=== PATIENT | female | born 2000 | race American Indian/Alaskan Native ===

== ENCOUNTER 2018-08-10 16:42 | Emergency (ER) | payer SELFPAY ==
[2018-08-10 16:50] VITALS: BP 147/78
[2018-08-10 17:25] LABS: Bilirubin,Urine NEG (Negative); Blood,Urine NEG (Negative); Color,Urine Straw (Yellow); Protein,Urine <15 mg/dL mg/dL (Negative); Urobilinogen,Urine < 2.0 mg/dL (<2.0)
[2018-08-10 17:27] LABS: HCG Qualitative,Urine Negative (Negative)
--- NOTE | 2018-08-10 18:18 | Emergency Department Report ---
ED Female HPI - General Chief complaint: Urogenital-Female Stated complaint: PELVIC ISSUES Time Seen by Provider: 08/10/18 17:19 Source: patient Mode of arrival: Ambulatory Limitations: No Limitations - History of Present Illness Initial comments: 18-year-old 18 year old -[place] female comes in complaining of pelvic discomfort and pressure for about 6 months. Patient denies any vaginal bleeding vaginal discharge or painful urination. Patient reports that pressure causes the pain. Patient reports normal periods last 7 days last menstrual was 08/02/2018. Patient reports that the pelvic pain is getting worse. She also complains of constipation and reports her last bowel movement was 3 days ago. Patient reports she has tried laxative but will come back. She reports that the pain is intermittent discomfort lasting hours and goes away. There's nothing makes it worse and nothing makes it better. Patient has tried no over-the-co unter pain medication. 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 Holland has not seen him since she has no insurance. She is 1. A 0. She reports she is not sexually active and is currently on no control. -: month(s) (6) Location: other (pelvic pressure) Radiation: non-radiating Severity: moderate Severity scale (0 -10): 6 Consistency: intermittent Worsens with: none Are you Now?: No Last Menstrual Period: 08/02/18 EDC: 05/09/19 - Related Data Sexually active: No : 1 Para: 0 A: 1 Home Medications Medication Instructions Recorded Confirmed Last Taken No Known Home Medications [No 07/26/14 07/26/14 Unknown Reported Home Medications] Allergies Allergy/AdvReac Type Severity Reaction Status Date / Time No Known Allergies Allergy Unverified 07/26/14 11:00 ED Review of Systems ROS: Stated complaint: PELVIC ISSUES Other details as noted in HPI Comment: All other systems reviewed and negative Gastrointestinal: other (pelvic pressure) ED Past Medical Hx - Past Medical History Previous Medical History?: No - Surgical History Past Surgical History?: No - Social History Smoking Status: Never Smoker Substance Use Type: None - Medications Home Medications: Home Medications Medication Instructions Recorded Confirmed Last Taken Type No Known Home Medications [No 07/26/14 07/26/14 Unknown History Reported Home Medications] ED Physical Exam - General Limitations: No Limitations ED Course Vital Signs 08/10/18 16:46 Temperature 98.5 F Pulse Rate 72 Respiratory 16 Rate Blood Pressure 147/78 O2 Sat by Pulse 100 Oximetry ED Medical Decision Making - Radiology Data Radiology results: report reviewed FINAL REPORT EXAM: XR ABDOMEN 1V AP HISTORY: constipation TECHNIQUE: Supine AP view of the abdomen. PRIORS: None. FINDINGS: The bowel gas pattern appears normal. The bones are unremarkable. IMPRESSION: Normal bowel gas pattern. Transcribed By: [facility] [place] Dictated By: ROSARIO JOHNSON MD Electronically Authenticated By: ROSARIO JOHNSON MD Signed Date/Time: 08/10/181921 DD/ 23 TD/TT: 08/10/181923 FINAL REPORT PROCEDURE: US TRANSVAGINAL TECHNIQUE: Real-time transvaginal sonography in multiple planes of the pelvis was performed with image documentation. This examination was performed without Doppler. Vascular abnormalities, including ovarian torsion, will not be detectable without Doppler evaluation. CPT 44714 HISTORY: pelvic pressure COMPARISON: No prior studies are available for comparison. FINDINGS: UTERUS Size: 7.2 x 3.6 x 5.1 cm. Endometrial thickness: 4.4 mm. Orientation: Anteverted and retroflexed. Cervix: Normal. Fibroids/masses: None. RIGHT Ovary: 3.7 x 2.0 x 2.7 cm. Appearance: Normal follicular changes are noted. Doppler flow is visualized.. LEFT Ovary: 2.3 x 2.3 x 1.9 cm. Appearance: Normal follicular changes are noted. Doppler flow is visualized.. Pelvic fluid: None. Other: None. IMPRESSION: Unremarkable study. Transcribed By: [facility] [place] Dictated By: WILMER BRADY Electronically Authenticated By: WILMER BRADY Signed Date/Time: 08/10/182023 DD/ 25 TD/TT: 08/10/182025 FINAL REPORT PROCEDURE: US PELVIC COMPLETE TECHNIQUE: Real-time transabdominal sonography in multiple planes of pelvis was performed with image documentation. This examination was performed without Doppler. Vascular abnormalities, including ovarian torsion, will not be detectable without Doppler evaluation. CPT 36338 HISTORY: with pressure COMPARISON: No prior studies are available for comparison. FINDINGS: Limited study due to empty urinary bladder UTERUS Size: 7.2 x 3.6 x 5.1 cm. Endometrial thickness: 4.4 mm. Orientation: Anteverted and retroflexed. Cervix: Normal. Fibroids/masses: None. RIGHT Ovary: 3.7 x 2.0 x 2.7 cm. Appearance: Normal follicular changes are noted. Doppler flow is visualized.. LEFT Ovary: 2.3 x 2.3 x 1.9 cm. Appearance: Normal follicular changes are noted. Doppler flow is visualized.. Pelvic fluid: None. Other: None. IMPRESSION: Limited study due to empty urinary bladder Unremarkable study otherwise. Transcribed By: [facility] [place] Dictated By: WILMER BRADY Electronically Authenticated By: WILMER BRADY Signed Date/Time: 08/10/182022 DD/ 24 TD/TT: 08/10/182024 - Medical Decision Making Patient has been evaluated by this provider in fast track. KUB shows normal examination, ultrasound pelvic complete with transvaginal normal examination. 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 Take [id number] Tylenol or M otrin for pain management. Critical care attestation.: If time is entered above; I have spent that time in minutes in the direct care of this critically ill patient, excluding procedure time. ED Disposition Clinical Impression: Pelvic pressure in female Disposition: DC-01 TO HOME OR SELFCARE Is pt being admited?: No Does the pt Need Aspirin: No Condition: Stable Additional Instructions: Please take Tylenol or Motrin for pain management. Your ultrasound and x-ray of your abdomen were both normal termination. Follow-up with HORSE RACING ANALYST I have listed several below for your convenience. Referrals: ROBE DE LA CRUZ MD [Primary Care Provider] - 3-5 Days [facility] [Provider Group] - 3-5 Days [facility] - 3-5 Days [facility] [Provider Group] - 3-5 Days Forms: Work/School Release Form(ED), Accompanied Note
--- NOTE | 2018-08-10 19:22 | XRay Report ---
FINAL REPORT EXAM: XR ABDOMEN 1V AP HISTORY: constipation TECHNIQUE: Supine AP view of the abdomen. PRIORS: None. FINDINGS: The bowel gas pattern appears normal. The bones are unremarkable. IMPRESSION: Normal bowel gas pattern.
--- NOTE | 2018-08-10 20:23 | Ultrasound Report ---
FINAL REPORT PROCEDURE: US PELVIC COMPLETE TECHNIQUE: Real-time transabdominal sonography in multiple planes of pelvis was performed with image documentation. This examination was performed without Doppler. Vascular abnormalities, including ova florencia torsion, will not be detectable without Doppler evaluation. CPT 42406 HISTORY: with pressure COMPARISON: No prior studies are available for comparison. FINDINGS: Limited study due to empty urinary bladder UTERUS Size: 7.2 x 3.6 x 5.1 cm. Endometrial thickness: 4.4 mm. Orientation: Anteverted and retroflexed. Cervix: Normal. Fibroids/masses: None. RIGHT Ovary: 3.7 x 2.0 x 2.7 cm. Appearance: Normal follicular changes are noted. Doppler flow is visualized.. LEFT Ovary: 2.3 x 2.3 x 1.9 cm. Appearance: Normal follicular changes are noted. Doppler flow is visualized.. Pelvic fluid: None. Other: None. IMPRESSION: Limited study due to empty urinary bladder Unremarkable study otherwise.
--- NOTE | 2018-08-10 20:24 | Ultrasound Report ---
FINAL REPORT PROCEDURE: US TRANSVAGINAL TECHNIQUE: Real-time transvaginal sonography in multiple planes of the pelvis was performed with shanita ge documentation. This examination was performed without Doppler. Vascular abnormalities, including o varian torsion, will not be detectable without Doppler evaluation. CPT 56869 HISTORY: pelvic pressure COMPARISON: No prior studies are available for comparison. FINDINGS: UTERUS Size: 7.2 x 3.6 x 5.1 cm. Endometrial thickness: 4.4 mm. Orientation: Anteverted and retroflexed. Cervix: Normal. Fibroids/masses: None. RIGHT Ovary: 3.7 x 2.0 x 2.7 cm. Appearance: Normal follicular changes are noted. Doppler flow is visualized.. LEFT Ovary: 2.3 x 2.3 x 1.9 cm. Appearance: Normal follicular changes are noted. Doppler flow is visualized.. Pelvic fluid: None. Other: None. IMPRESSION: Unremarkable study.
== END 2018-08-10 20:05 | disposition home or self-care (01) ==
LOC: ED 16:42
DX: R10.2 Pelvic and perineal pain (principal)
CPT/HCPCS: 74018; 76830; 76856; 81001; 81025; 99284